=== PATIENT | male | born 1965 | race Caucasian/White ===

== ENCOUNTER 2018-03-10 12:59 | Emergency (ER) | payer SELFPAY ==
[2018-03-10 13:53] VITALS: BP 121/83
[2018-03-10] MEDS ORDERED: Ibuprofen TAB* 600 MG PO ONE (14:14)
--- NOTE | 2018-03-10 15:37 | UC ---
Back Pain HPI - HPI Summary HPI Summary: Pt presents to reporting left hip and leg pain. 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 Pt states he has ongoing and recurrent left hip and leg pain. Pt states was in the ED in [place] with his earlier this week. States had xray and US both which "showed nothing" Pt states when he drives, the pain gets worse. Pt reports pain extending lateral thigh to knee. No falls, No leg weakness, no foot pain. Pt denies changes to bowel or bladder. No h/o neck or back pain. Pt states take "pills to help me sleep" but nothing for the pain. Pt denies cp, sob, abd pain. no n/v/d. no fever, chills no rash Concern was raised by reception specialist staff regarding patient's state of sobriety. As conversation continued with pt he reports that he drinks alcohol to help with pain. Pt states, when asked if he is intoxicated that he is "a little buzzed." Further, the pt states "I drank 4 beers from [facility] to here." Pt reports he "doesn't do drugs and doesn't drink liquor, just beer." Pt did not know what medications he had been prescribed previously pt denied other medical history including diabetes, hypertension, CVA, CAD - History of Current Complaint Chief Complaint: UCBackPain Stated Complaint: LOWER BACK, LEFT HIP/LEG PAIN Time Seen by Provider: 03/10/18 13:39 Hx Obtained From: Patient Onset/Duration: Gradual Onset, Lasting Days Timing: Constant Severity Initially: Severe Severity Currently: Severe Pain Intensity: 10 Pain Scale Used: 0-10 Numeric Back Pain: Is Discrete @ - left buttock to left hip and thigh Aggravating Factor(s): Movement, Walking, Other - driving Alleviating Factor(s): Nothing Associated Signs And Symptoms: Positive: Negative - Allergies/Home Medications Allergies/Adverse Reactions: Allergies Allergy/AdvReac Type Severity Reaction Status Date / Time No Known Allergies Allergy Verified 03/10/18 13:36 Home Medications: Home Medications NK [No Home Medications Reported] 03/10/18 [History Confirmed 03/10/18] PMH/Surg Hx/FS Hx/Imm Hx Previously Healthy: Yes - Surgical History Surgical History: Yes Surgery Procedure, Year, and Place: formerly [facility] fx - Family History Known Family History: Positive: Other - noncontributory - Social History Occupation: Employed Full-time Alcohol Use: Daily Alcohol Amount: "HEAVY DRINKER"-Last drink 1 hour ago Substance Use Type: None Smoking Status (MU): Heavy Every Day Tobacco Smoker Type: Cigarettes Amount Used/How Often: 1 PPD Length of Time of Smoking/Using Tobacco: 35 years - Immunization History Most Recent Tetanus Shot: UTD Review of Systems Constitutional: Negative Skin: Negative Respiratory: Negative Cardiovascular: Negative Gastrointestinal: Negative Genitourinary: Negative Motor: Negative Neurovascular: Other - radiating pain left leg Musculoskeletal: Other: - left hip, leg Is Patient Immunocompromised?: No All Other Systems Reviewed And Are Negative: Yes Physical Exam - Summary Physical Exam Summary: Vital Signs Reviewed: Yes A+O to name, age month - pt unsure of day of week -offered 3 separate dates, alcohol-like odor on patient Eyes: Conjunctiva injected, ZEKE. EOM intact and full ENT: Hearing grossly normal TM x 2 clear, mmpasty, uvula midline, no exudate, no erythema Neck: Positive: Supple Respiratory: Positive: No respiratory distress, No accessory muscle use + CTA throughout no w/r Cardiovascular: RRR nl s1, s2 no m/r CBT <2 sec abd soft + BS nt/nd no guarding, no distension, no cva Musculoskeletal Exam: no spinous process pain c/t/l/s LLE: SLE + 5/5 flex/ext knee, ankle + TTP left buttock no pain with ROM testing of knee. Pain increased with deep palp left buttock Neurological: Positive: Alert, + grossly equal sensation b/l LE 2+ patella, achilles without clonus, pt balance somewhat unsteady at times. Pt ambulates to room with slight favoring lle. pt easily climbed on and off examination table without difficulty or assistance Psychological: Positive: alert, occasional slurring of word, pt requiring frequent redirecting to questions. Skin: Positive: no rash, no ecchymosis Triage Information Reviewed: Yes Vital Signs: Initial Vital Signs Temp 97.3 F 03/10/18 13:37 Pulse 98 03/10/18 13:37 Resp 16 03/10/18 13:37 BP 121/83 03/10/18 13:37 Pulse Ox 100 03/10/18 13:37 Back Pain Course/Dx - Course Course Of Treatment: Pt presents to urgent care report left hip and left lower leg pain and paresthesia. 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 States was recently evaluated in an ED in [place] with xray and [facility] imaging. Pt states pain is exacerbated with sitting and driving. On exam, pt neurovascularly intact. Suspect pain related to sciatica. requested a urine to eval for hematuria - pt refused to give sample stating "I don't do drugs" I explained to patient on 3 separate occasions I was not testing for drugs - he continued to refuse. on 2 occasions of conversation, the pt referred to the urine sample he gave me - both time I picked up the urine specimen that was empty, pt stated "I don't do drugs" I gave pt a dose of motrin. Imaging not indicated at this visit. I attempted to discuss with pt stretches, positional treatments - pt became agiitated and demaneded I give him something to help him sleep. I expressed to patient that would not prescribed any sedating medication, narcotic medication, or controlled substance as he reported to me he had been drinking alcohol and the combination was not safe. Pt began to escalate and demand medicaitons. I had a lengthly conversation with patient regarding his alcohol consumption and driving. Pt stated "sandie been doing this all my life. 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 Pt again said "I'm just a little buzzed.". I told patient he could not go to his truck. I asked if there was someone who could come pick him up and he said no. I offered patient assistance with a taxi to a hotel. Pt declined. I repeatedly told patient he could not go to his truck -that he was intoxicated. Pt stated he would go to his truck and sleep. I again offered patient alternatives and he refused. Pt again demanded medication to help his sleep. I told patient I would not give him any, explained why, and told him I would write his discharge paper work. Pt was agitated and left examine room. After standing in our waiting room and refusing alternatives for safety, pt walked out. 911 was notified of concern for patient safety to self and public. - Differential Dx/Diagnosis Provider Diagnoses: left sciatic pain with radiculopathy Discharge - Sign-Out/Discharge Documenting (check all that apply): Patient Departure All imaging exams completed and their final reports reviewed: No Studies - Discharge Plan Condition: Stable Disposition: HOME Patient Education Materials: Sciatica (ED), Lumbar Radiculopathy (ED) Referrals: No Primary Care Phys,NOPCP [Primary Care Provider] - Additional Instructions: - schedule a follow-up appointment with your primary doctor for when you return to [place] - alternate ibuprofen (Advil, Motrin) 600mg and acetaminophen (Tylenol) every 3 hours for pain - Take with food - If you develop leg weakness, difficulty controlling your bowel or bladder you should go immediately to the emergency department - Billing Disposition and Condition Condition: STABLE Disposition: Home
== END 2018-03-10 14:45 | disposition home or self-care (01) ==
LOC: UCCORT 12:59
DX: M54.32 Sciatica, left side (principal); M54.10 Radiculopathy, site unspecified
CPT/HCPCS: 99202; A9270-GY; G0463